=== PATIENT | male | born 1955 | race Two or more races ===

== ENCOUNTER 2021-07-28 17:12 | Emergency (ER) | payer OTHER ==
[~2021-07-28] VITALS: Ht 177.8 cm; Wt 88.5 kg
[2021-07-28] MEDS ORDERED: LOSARTAN POTASS50 MG (17:24)
[2021-07-28] MEDS ORDERED: ZITHROMAX500 MG PO (18:47)
[2021-07-28] MEDS ORDERED: TUSNEL LIQUID178 ML PO (18:47)
[2021-07-28] MEDS ORDERED: ZYRTEC10 MG PO (18:47)
== END 2021-07-28 19:15 | disposition home or self-care (01) ==
LOC: ER 17:12
DX: B34.9 Viral infection, unspecified (principal); R05.9 Cough, unspecified; R53.81 Other malaise; Z03.818 Encounter for observation for suspected exposure to other biological agents ruled out

== ENCOUNTER 2022-01-22 11:24 | Emergency (ER) | payer OTHER ==
[~2022-01-22] VITALS: Ht 185.4 cm; Wt 100.7 kg
[~2022-01-22 11:24] MED LIST: LOSARTAN POTASS50 MG; MEDROLPACK PO; TUSNEL LIQUID178 ML PO; ZITHROMAX500 MG PO; ZYRTEC10 MG PO
[2022-01-22] MEDS ORDERED: ROSUVASTATIN CA10 MG PO (11:45)
== END 2022-01-22 15:49 | disposition home or self-care (01) ==
LOC: ER 11:24
DX: J06.9 Acute upper respiratory infection, unspecified (principal); Z20.828 Contact with and (suspected) exposure to other viral communicable diseases

== ENCOUNTER 2024-11-23 08:19 | Emergency (ER) | payer OTHER, BC ==
[~2024-11-23] VITALS: Ht 185.4 cm; Wt 102.5 kg
[~2024-11-23 08:19] MED LIST changes: +ROSUVASTATIN CA10 MG PO
[2024-11-23] MEDS ORDERED: TAMS0.4C (08:29)
[2024-11-23] MEDS ORDERED: MONTELUKAST SODIUM 10 MG TABLET PO ONE (09:00)
[2024-11-23] MEDS ORDERED: LORATADINE 10 MG TABLET PO ONE (09:00)
[2024-11-23 09:54] LABS: HEMATOCRIT 40.8 % (39.0-48.0); HEMOGLOBIN 13.8 g/dL (13-16.00); MEAN CELL VOLUME 90.2 fL (80.0-100.00); MEAN CORPUSCULAR HEMOGLOBIN 30.5 pg (27.00-32.0); MEAN CORPUSCULAR HGB CONC 33.8 g/dl (32.0-36.0); PLATELET COUNT 169 K/uL (150-450); RED BLOOD COUNT 4.52 M/uL (4.00-6.00); RED CELL DISTRIBUTION WIDTH 13.9 % (11.5-14.5)
[2024-11-23] MEDS ORDERED: CLARITIN10 MG PO (10:35)
[2024-11-24] MEDS ORDERED: TUSSIN DM LIQU118 ML PO (22:05)
== END 2024-11-23 10:41 | disposition home or self-care (01) ==
LOC: ER 08:20
PROVIDERS: General Practice
DX: U07.1 COVID-19 (principal); R09.81 Nasal congestion

== ENCOUNTER 2024-11-24 16:25 | Emergency (ER) | payer OTHER, BC ==
[~2024-11-24] VITALS: Ht 185.4 cm; Wt 102.5 kg
[~2024-11-24 16:25] MED LIST changes: +CLARITIN10 MG PO; +TAMS0.4C
[2024-11-24] MEDS ORDERED: GUAIFENESIN/DEXTROMETHORPHAN 100MG/10ML BLIST.PACK PO ONE (20:00)
[2024-11-24] MEDS ORDERED: GUAIFEN/DEXTROMETHORPHAN/PE 10 ML BLIST.PACK PO ONE (20:04)
[2024-11-24] MEDS ORDERED: TUSSIN DM LIQU118 ML PO (22:05)
== END 2024-11-24 22:13 | disposition home or self-care (01) ==
LOC: ER 16:26
DX: U07.1 COVID-19 (principal); R05.8 Other specified cough; R53.81 Other malaise; I10 Essential (primary) hypertension